=== PATIENT | female | born 1985 | race Caucasian/White ===

== ENCOUNTER 2019-03-10 14:46 | Emergency (ER) | payer MEDICAID, OTHER ==
--- NOTE | 2019-03-10 15:02 | Emergency Department Report ---
Blank Doc - Documentation Documentation: This is a 33-year-old female that presents with SI with depression and anxiety. Stated has a plan by jumping out of her window. This initial assessment/diagnostic orders/clinical plan/treatment(s) is/are subject to change based on patient's health status, clinical progression and re- assessment by fellow clinical providers in the ED. Further treatment and workup at subsequent clinical providers discretion. Patient/guardians urged not to elope from the ED as their condition may be serious if not clinically assessed and managed. Initial orders include: 1- Patient sent to MAIN ED for further evaluation and treatment 2- motor vehicle operator road supervisor was notified to have patient be brought back [facility]. 3- RN was notified to keep patient as close range and observation until room available 4- Patient presents with substantial risk of imminent harm to self, appears to be so unable to care for his/her own physical health and safety as to create an imminently life-endangering crisis, and has committed/expressed life endangering crisis to self. Due to this and other complaints, patient is put on 1013.
[2019-03-10 15:36] LABS: Hematocrit 38.1 % (30.3-42.9); Hemoglobin 13.3 gm/dl (10.1-14.3); Mean Corpuscular HGB Conc 35 % (30-34); Mean Corpuscular Volume 92 fl (79-97); Platelet Count 240 K/mm3 (140-440); Red Blood Count 4.16 M/mm3 (3.65-5.03); Red Cell Distribution Width 14.5 % (13.2-15.2)
[2019-03-10 15:51] LABS: BUN/Creatinine Ratio 14; Blood Urea Nitrogen 7 mg/dL (7-17); Calcium 8.6 mg/dL (8.4-10.2); Hemolysis Index 0
--- NOTE | 2019-03-10 15:55 | Emergency Department Report ---
ED Psych HPI - General Chief Complaint: Psych Stated Complaint: ANXIETY/DEPRESSION Time Seen by Provider: 03/10/19 15:00 Source: patient Mode of arrival: Ambulatory - History of Present Illness Initial Comments: Patient is a 33 years old female with history of bipolar disorder. Patient brought to the emergency room with her significant other for evaluation of depression and suicidal thoughts. Patient stated that she is feeling suicidal and very depressed. Patient stated that she is thinking about jumping from her second story building. Patient stated that she is hearing voices shouting and her name but she does not see them. Patient denied any homicidal ideation. [place] mckeon stated that she was on 6 medications for her bipolar but she does not remember them and she doesn't remember the last time she took them. MD Complaint: suicidal ideation, feels depressed Associated Psychiatric Symptoms: depression, suicidal ideation, racing thoughts, auditory hallucinations, visual hallucinations History of same: Yes Quality: constant Associated Symptoms: denies other symptoms If Self Harm: admits thoughts of, self-inflicted trauma - Related Data Previous Rx's Medication Instructions Recorded Last Taken Type Escitalopram Oxalate [Lexapro] 5 mg PO QDAY #14 tablet 08/19/18 Unknown Rx Laurium Carbonate [Laurium 300 mg PO DAILY #14 tablet.er 08/19/18 Unknown Rx Carbonate ER] Zolpidem [Ambien] 5 mg PO QHS PRN #12 tablet 08/19/18 Unknown Rx carBAMazepine [TEGretol] 200 mg PO Q12HR #30 tab 08/19/18 Unknown Rx Allergies Allergy/AdvReac Type Severity Reaction Status Date / Time No Known Allergies Allergy Verified 03/10/19 15:04 ED Review of Systems ROS: Stated complaint: ANXIETY/DEPRESSION Other details as noted in HPI Comment: All other systems reviewed and negative Constitutional: denies: chills, fever Respiratory: denies: cough, orthopnea, shortness of breath, SOB with exertion, SOB at rest Cardiovascular: denies: chest pain, palpitations, dyspnea on exertion Gastrointestinal: denies: abdominal pain, nausea, vomiting, diarrhea, constipation, hematemesis, hematochezia Musculoskeletal: denies: back pain Neurological: denies: headache, weakness, numbness, paresthesias, confusion, abnormal gait Psychiatric: depression, auditory hallucinations, visual hallucinations. den ies: homicidal thoughts ED Past Medical Hx - Past Medical History Previous Medical History?: Yes Additional medical history: Anxiety/depression, Bi polar. - Surgical History Past Surgical History?: Yes Hx Appendectomy: Yes Additional Surgical History: breast augmentation - Social History Smoking Status: Never Smoker Substance Use Type: Alcohol, Marijuana - Medications Home Medications: Home Medications Medication Instructions Recorded Confirmed Last Taken Type Escitalopram Oxalate [Lexapro] 5 mg PO QDAY #14 tablet 08/19/18 Unknown Rx Laurium Carbonate [Laurium 300 mg PO DAILY #14 tablet.er 08/19/18 Unknown Rx Carbonate ER] Zolpidem [Ambien] 5 mg PO QHS PRN #12 tablet 08/19/18 Unknown Rx carBAMazepine [TEGretol] 200 mg PO Q12HR #30 tab 08/19/18 Unknown Rx ED Physical Exam - General Limitations: No Limitations General appearance: alert, in no apparent distress, anxious - Head Head exam: Present: atraumatic, normocephalic, normal inspection - Eye Eye exam: Present: normal appearance - ENT ENT exam: Present: normal exam, normal orophraynx, mucous membranes moist - Neck Neck exam: Present: normal inspection, full ROM. Absent: tenderness, meningismus, lymphadenopathy, thyromegaly - Respiratory Respiratory exam: Present: normal lung sounds bilaterally - Cardiovascular Cardiovascular Exam: Present: regular rate, normal rhythm, normal heart sounds - GI/Abdominal GI/Abdominal exam: Present: soft, normal bowel sounds. Absent: distended, tenderness, guarding, rebound, rigid, organomegaly, mass, bruit, pulsatile mass, hernia - Extremities Exam Extremities exam: Present: normal inspection, full ROM, normal capillary refill. Absent: pedal edema, calf tenderness - Back Exam Back exam: Present: normal inspection, full ROM. Absent: tenderness, CVA tenderness (R), CVA tenderness (L), muscle spasm, paraspinal tenderness, verteb ral tenderness - Neurological Exam Neurological exam: Present: alert, oriented X3, CN II-XII intact, normal gait, reflexes normal - Psychiatric Psychiatric exam: Present: depressed, anxious, suicidal ideation. Absent: lolis tated, manic, homicidal ideation - Skin Skin exam: Present: warm, intact, normal color ED Course Vital Signs 03/10/19 03/10/19 03/10/19 15:00 15:53 19:25 Temperature 98.7 F 98.4 F Pulse Rate 96 H 88 Respiratory 22 18 14 Rate Blood Pressure 133/81 135/91 [Right] O2 Sat by Pulse 97 100 Oximetry ED Medical Decision Making - Lab Data Result diagrams: 03/10/19 15:09 03/10/19 18:37 - Medical Decision Making Patient is a 33 years old female with history of bipolar disorder. Patient brought to the emergency room with her significant other for evaluation of depression and suicidal thoughts. Patient stated that she is feeling suicidal and very depressed. Patient stated that she is thinking about jumping from her second story building. Patient stated that she is hearing voices shouting and her name but she does not see them. Patient denied any homicidal ideation. Patient stated that she was on 6 medications for her bipolar but she does not remember them and she doesn't remember the last time she took them. Patient immediately put on 1013. Mental health evaluation requested. Hypokalemia treated with a potassium 80 mEq by mouth in a divided dose. Patient is medically clear for inpatient psychiatric admission. Critical care attestation.: If time is entered above; I have spent that time in minutes in the direct care of this critically ill patient, excluding procedure time. ED Disposition Clinical Impression: Depression, Suicidal ideation, Hypokalemia Disposition: [id number] PSY HOSP/PSY UNIT Is pt being admited?: No Condition: Stable
[2019-03-10] MEDS ORDERED: K-DUR PO ONE ×3 (15:57→20:00)
[2019-03-10 16:00] LABS: Bilirubin,Urine NEG (Negative); Blood,Urine SM (Negative); Color,Urine Yellow (Yellow); Mucus,Urine 3+ /HPF; Protein,Urine <15 mg/dL mg/dL (Negative); Urobilinogen,Urine < 2.0 mg/dL (<2.0)
[2019-03-10 16:02] LABS: Amphetamine Screen,Urine PRESUMPTIVE NEGATIVE; Benzodiazepines Screen,Urine PRESUMPTIVE NEGATIVE; Cocaine Screen,Urine PRESUMPTIVE NEGATIVE; Methadone Screen,Urine PRESUMPTIVE NEGATIVE; Opiate Screen,Urine PRESUMPTIVE NEGATIVE
[2019-03-10 16:18] LABS: Cannabinoid Screen,Urine PRESUMPTIVE POSITIVE
[2019-03-10 16:34] LABS: Anisocytosis 1+; Band Neutrophils # (Manual) 0.2 K/mm3; Giant Platelets Few; Total Cells Counted 100
[2019-03-10 16:35] LABS: Large Platelets Few; Platelet Estimate Consistent w Auto
[2019-03-10] MEDS ORDERED: ATIVAN PO ONE (18:17)
[2019-03-10 21:28] LABS: HCG Qualitative,Urine Negative (Negative)
[2019-03-11] MEDS ORDERED: ATIVAN IV PRN ×2 (11:14)
[2019-03-11] MEDS ORDERED: LIBRIUM PO PRN (11:14)
[2019-03-11] MEDS ORDERED: NACL 0.9% 1000 ML 1,000 ML IV ONE (11:15)
[2019-03-11] MEDS ORDERED: THERAGRAN Tab PO ONE (11:15)
[2019-03-11] MEDS ORDERED: VITAMIN B-1 PO ONE (11:15)
[2019-03-11] MEDS ORDERED: Renal Caps PO ONE (12:00)
[2019-03-11] MEDS ORDERED: ZOFRAN IV ONE ×2 (12:00→18:18)
[2019-03-11] MEDS ORDERED: ZOFRAN ONE ×2 (12:16→18:12)
[2019-03-11] MEDS: ATIVAN IV PRN ×2 (12:28→19:00)
--- NOTE | 2019-03-11 14:21 | Consultation ---
History of Present Illness - Reason for Consult Consult date: 03/11/19 Reason for consult: Mental Healt Evaluation Requesting physician: EVERETTE WILSON - Chief Complaint Chief complaint: "I an not doing well" - History of Present Psychiatric Illness 37 y.o. white female who presented to the ER for SI's and depression. Today the patient was anxious during the assessment. She stated that she was suicidal yesterday, but would not confirm or deny SI's when today. She was vague about why she is having SI's. She stated that she haven't taken her psy medications in the past 2 months. She stated that she recently moved from [place] and do not have a psychiatrist locally. She rate her depression/anxiety 7/10, with 10 being the worse. She stated that she have increased her alcohol intake (etoh) lately to "combat" her depression. She stated that her sleep has been "off", but denies a poor appetite. She denies HI's and AVH's. Medications and Allergies Allergies Allergy/AdvReac Type Severity Reaction Status Date / Time No Known Allergies Allergy Verified 03/10/19 15:04 Home Medications Medication Instructions Recorded Confirmed Last Taken Type Escitalopram Oxalate [Lexapro] 5 mg PO QDAY #14 tablet 08/19/18 Unknown Rx [place] Carbonate [C[place] 300 mg PO DAILY #14 tablet.er 08/19/18 Unknown Rx Carbonate ER] Zolpidem [Ambien] 5 mg PO QHS PRN #12 tablet 08/19/18 Unknown Rx carBAMazepine [TEGretol] 200 mg PO Q12HR #30 tab 08/19/18 Unknown Rx Active Meds: Active Medications Chlordiazepoxide HCl (Librium) 100 mg PO Q1H PRN PRN Reason: CIWA-Ar 16-25 Lorazepam (Ativan) 2 mg IV Q1H PRN PRN Reason: CIWA-Ar 8-15 Last Admin: 03/11/19 12:28 Dose: 2 mg Documented by: Lorazepam (Ativan) 4 mg IV Q1H PRN PRN Reason: CIWA-Ar 16-25 Lorazepam (Ativan) 4 mg IV Q15MIN PRN PRN Reason: CIWA-Ar >25 Past psychiatric history - Past Medical History Past Medical History: other (Yes) Past Surgical History: appendectomy, Other (Breast Augmentation, ) - past Psychiatric treatment and history psychiatric treatment history: Hx of depression. Denies a fam psy hx. - Social History Social history: lives with family Mental Status Exam - Vital signs Last Vital Signs Temp 98.5 F 03/11/19 09:07 Pulse 71 03/11/19 09:07 Resp 16 03/11/19 09:07 BP 124/69 03/11/19 09:07 Pulse Ox 100 03/11/19 09:07 - Exam Narrative exam: MSE: Appearance: in hospital attire Behavior: regular eye contact Speech: regular rate and tone Mood: "anxious and depressed Affect: congruent to mood Thought Process: linear Thought Content: denies HI's and AVH's Motor Activity: fidgety Cognition: A/O x3 Insight: poor Judgment: poor Results Result Diagrams: 03/10/19 15:03/10/19 22:30 Abnormal lab results 03/10/19 03/10/19 03/10/19 Range/Units 15: 15: 15:09 MCHC 35 H (30-34) % Potassium 2.9 L* (3.6-5.0) mmol/L Carbon Dioxide 20 L (22-30) mmol/L Creatinine 0.5 L (0.7-1.2) mg/dL Glucose 104 H (65-100) mg/dL Salicylates < 0.3 L (2.8-20.0) mg/dL Acetaminophen (10.0-30.0) ug/mL Plasma/Serum Alcohol (0-0.07) % 03/10/19 03/10/19 03/10/19 Range/Units 15: 15: 18:37 MCHC (30-34) % Potassium 3.2 L (3.6-5.0) mmol/L Carbon Dioxide (22-30) mmol/L Creatinine (0.7-1.2) mg/dL Glucose (65-100) mg/dL Salicylates (2.8-20.0) mg/dL Acetaminophen < 5.0 L (10.0-30.0) ug/mL Plasma/Serum Alcohol 0.09 H (0-0.07) % 03/10/19 03/10/19 Range/Units 20:38 22:30 MCHC (30-34) % Potassium 3.1 L 3.3 L (3.6-5.0) mmol/L Carbon Dioxide (22-30) mmol/L Creatinine (0.7-1.2) mg/dL Glucose (65-100) mg/dL Salicylates (2.8-20.0) mg/dL Acetaminophen (10.0-30.0) ug/mL Plasma/Serum Alcohol (0-0.07) % All other labs normal. Assessment and Plan Assessment and plan: Impression: MDD, Severe Type. Unspecified Anxiety DO. Cannabis Use DO. Alcohol Use DO. Today the patient was anxious during the assessment. The patient would not contract for safety. DDx: Bipolar DO, Substance Induced Mood DO Recommendation/Plan: Continue 1013, CIWA, and start Remeron 15 mg PO HS for depression/anxiety and Buspar 7.5 mg PO BID for anxiety. Discussed possible suicidality/medication induced maryjo with the patient, she verbalized understanding. Dispo: The patient was referred to inpatient psy services. Staffed with Dr Gold Daly.
[2019-03-11] MEDS ORDERED: BUSPAR PO SCH (15:00)
[2019-03-11] MEDS ORDERED: ZOFRAN ODT ONE (17:37)
[2019-03-11] MEDS ORDERED: REMERON PO SCH (22:00)
[2019-03-12 06:58] VITALS: BP 106/73
== END 2019-03-12 07:15 ==
LOC: EEVIPCON 14:46 → ED 14:46
DX: F32.9 Major depressive disorder, single episode, unspecified (principal); E87.6 Hypokalemia; F41.9 Anxiety disorder, unspecified; Z90.49 Acquired absence of other specified parts of digestive tract; F12.10 Cannabis abuse, uncomplicated
CPT/HCPCS: 36415; 80048; 80307; 81001; 81025; 84132; 85007; 85025; 96374; 96375; 96376; 99285; G0480; J2060; J2405; J7030; 80320; Q0162

== ENCOUNTER 2020-01-26 17:47 | Outpatient (CLI) | payer MEDICAID ==
[2020-01-26 19:51] LABS: Bilirubin,Urine NEG (Negative); Blood,Urine NEG (Negative); Color,Urine Yellow (Yellow); Mucus,Urine FEW /HPF; Protein,Urine <15 mg/dL mg/dL (Negative); WBC,Urine < 1.0 /HPF (0.0-6.0)
[2020-01-26 19:53] VITALS: BP 120/70
== END 2020-01-26 20:28 | disposition home or self-care (01) ==
LOC: TRG 17:47 → EEVIPCON 17:47 → APU 17:50 → TRG 20:28
PROVIDERS: ATTEND Obstetrics & Gynecology
DX: O47.03 False labor before 37 completed weeks of gestation, third trimester (principal); Z3A.35 35 weeks gestation of pregnancy
CPT/HCPCS: 59025; 81001